=== PATIENT | female | born 1985 | race Caucasian/White ===

== ENCOUNTER 2018-08-03 20:11 | Emergency (ER) | payer OTHER ==
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
[2018-08-03] MEDS ORDERED: IOPAMIDOL (ISOVUE-300) 100 ML BTL ONE (20:36)
[2018-08-03 21:23] VITALS: BP 121/55
[2018-08-03] MEDS ORDERED: HYDROCOD/APAP 5/325 PREPACK#6 BTL TAKEHOME ONE (21:28)
[2018-08-03] MEDS ORDERED: ONDANSETRON 4MG PREPACK#2 BTL TAKEHOME ONE ×2 (21:35)
[2018-08-03] MEDS ORDERED: KETOROLAC 30 MG/1 ML SDV ONE (21:37)
[2018-08-03] MEDS ORDERED: KETOROLAC 30 MG/1 ML SDV IVP ONE (21:40)
== END 2018-08-03 21:56 | disposition home or self-care (01) ==
DX: R07.89 Other chest pain (principal); V49.60XA Unspecified car occupant injured in collision with unspecified motor vehicles in traffic accident, initial encounter; Y99.9 Unspecified external cause status
CPT/HCPCS: 82435-PO; 82565-PO; 82947-PO; 84132-PO; 84295-PO; 84520-PO; 85014-PO; 96374; J1885; Q9967